=== PATIENT | male | born 1950 | race Caucasian/White ===

== ENCOUNTER → 2020-12-19 13:10 | Outpatient (BNVA) | payer MEDICARE, SELFPAY | PROVIDERS: PCP Internal Medicine; Visit Provider Urology | DX: Z13.89 Encounter for screening for other disorder (principal) | CPT/HCPCS: Q3014 ==

== ENCOUNTER → 2021-12-22 13:07 | Outpatient (BNVA) | payer MEDICARE, BC, SELFPAY | PROVIDERS: PCP Internal Medicine; Visit Provider Urology | DX: N40.1 Benign prostatic hyperplasia with lower urinary tract symptoms (principal); N13.8 Other obstructive and reflux uropathy; R39.12 Poor urinary stream; Z79.899 Other long term (current) drug therapy | CPT/HCPCS: 51798; 99212 ==

== ENCOUNTER → 2022-12-22 13:12 | Outpatient (BNVA) | payer MEDICARE, BC, SELFPAY | PROVIDERS: PCP Internal Medicine; Visit Provider Urology | DX: N40.1 Benign prostatic hyperplasia with lower urinary tract symptoms (principal); N13.8 Other obstructive and reflux uropathy; R35.1 Nocturia; R39.12 Poor urinary stream; R97.20 Elevated prostate specific antigen [PSA] | CPT/HCPCS: 51798; 99212 ==

== ENCOUNTER 2023-12-08 12:36 | Outpatient (REF) | payer MEDICARE, BC, SELFPAY ==
[2023-12-08 13:55] LABS: Prostate Specific Antigen 1.01 ng/mL (<0.05-4.0)
== END 2023-12-08 12:37 | disposition home or self-care (01) ==
LOC: HO.10HDL 12:36
PROVIDERS: Visit Provider Urology
DX: N40.1 Benign prostatic hyperplasia with lower urinary tract symptoms (principal); N13.8 Other obstructive and reflux uropathy; Z12.5 Encounter for screening for malignant neoplasm of prostate
CPT/HCPCS: 36415; 84153

== ENCOUNTER 2023-12-21 13:23 | Outpatient (AMB) | payer MEDICARE, BC, SELFPAY ==
--- NOTE | 2023-12-21 13:51 | A.OFFVIS_ITS ---
Intake Intake Visit Reasons: 1Y PSA(set)confirmed Intake Note: Patient presents today for a yearly follow-up and PSA labs. Meds- Finasteride Allergies to Antibiotic- No Known Allergies Blood Thinner- None Post Void Residual: 42ml Client Services Manager Required: No Accompanied by: Self / Same As Patient Allergies No Known Allergies Allergy (Verified 12/21/23 13:53) HPI HPI Comments History of Present Illness Details Gaston VALERA is a very pleasant male. He is a patient of Dr Logan. He is seen for the following urologic conditions - lower urinary tract symptoms PVR 42 cc Continue finasteride Tuesday, Tuesday, Tuesday Twelve month follow-up Lower Urinary Tract Symptoms: Current treatment includes medication, finasteride Prostate Symptom Score 8/18 , Mild (0-8), Bother 2 12/06 does have some nocturia. But eats dinner late and drinks with dinner PSA 12/07 0.6 Results from testing include cystoscopy Enlarged lateral lobes renal/bladder us Yes date 12/05/2018 PVR 50 prostate size 25 Prior Prostate Score unknown. Prostate volume 30-50gm. Testing at next visit will include bladder scan, Prostate Symptom Score. [facility] Medical History Nocturia Chronic prostatitis Weak urinary stream Surgical History History of eye surgery History of knee replacement Review of Systems Const Denies chills and Denies fever(s) Card Reports no additional complaints and Denies syncope Resp Denies cough GI Denies abdominal pain and Denies heartburn Reports as per HPI and Denies change in libido Neuro Denies syncope Psych Denies change in libido Endo Denies change in libido Physical Exam Const General: cooperative, healthy appearing, comfortable and no acute distress Orientation/consciousness: patient oriented x3 HEENT Face and sinus: Yes normal facial exam Mouth: moist mucous membranes Neck Neck: Yes normal visual inspection, Yes full ROM and Yes trachea midline Chest Chest palpation & inspection: normal inspection of the chest Resp Effort & Inspection: normal respiratory effort, able to speak in complete sentences and no respiratory distress GI Inspection: Yes normal to inspection Back/Spine/Pelvis Cervical Spine: normal cervical lordosis Thoracic/Lumbar Spine: thoracic and lumbar spine normal to inspection Skin General skin exam: no rashes or lesions noted Neuro General: patient oriented x3, gait normal, tone normal and moves all extremities Extrem General: Yes normal to inspection and Yes capillary refill normal Office Procedures Post Void Residual Post Residual Void Post Void Residual (PVR): 42 15308-Iule Void Residual by ultrasound Assessment & Plan Assessment & Plan (1) Nocturia: Code(s): R35.1 - Nocturia (2) Weak urinary stream: Code(s): R39.12 - Poor urinary stream (3) BPH w urinary obs/LUTS: Code(s): N40.1 - Benign prostatic hyperplasia with lower urinary tract symptoms; N13.8 - Other obstructive and reflux uropathy Plan Continue yearly evaluation Orders: Orders AMB Post Void Residual by ultrasound 12/21/23 R33.9 - Retention of urine, unspecified Patient Instructions: Imaging studies, laboratory and physical exam results were discussed and reviewed in detail. No major barriers to patient understanding were identified. An opportunity to ask questions regarding the treatment plan was provided. All questions were answered. The patient expressed understanding and agreement with the above treatment plan. The patient is aware they should contact our office by phone for worsening of their current condition or the appearance of new urologic symptoms. Compliance is encouraged with any medications and followup testing that is ordered. It is a privilege to participate in the urologic care of your patient. If you have any questions or concerns regarding treatment for the above conditions, or other urologic issues, please do not hesitate to contact me. The office telephone contact is [phone]. This note is constructed using voice recognition software. While every effort has been made to ensure accuracy milieu coordinator errors may have been included. Yours sincerely, Dr Duglas Segovia MD, [facility] - Urology Providers of Expert, Compassionate Care for the Genitourinary System Coding Level of Care Code Tele Est Pt Level 4 (87110) Diagnoses Nocturia R35.1 Weak urinary stream R39.12 BPH w urinary obs/LUTS N40.1; N13.8 CPT Codes Post Residual Void - PVR CPT Code: 12652-Aais Void Residual by ultrasound ([id number])
== END 2023-12-21 14:28 | disposition home or self-care (01) ==
PROVIDERS: Visit Provider Urology
DX: N40.1 Benign prostatic hyperplasia with lower urinary tract symptoms (principal); R35.1 Nocturia; R39.12 Poor urinary stream; N13.8 Other obstructive and reflux uropathy
CPT/HCPCS: 99213

== ENCOUNTER → 2023-12-21 13:23 | Outpatient (BNVA) | payer MEDICARE, BC, SELFPAY | PROVIDERS: Visit Provider Urology | DX: N40.1 Benign prostatic hyperplasia with lower urinary tract symptoms (principal); N13.8 Other obstructive and reflux uropathy; R35.1 Nocturia; R39.12 Poor urinary stream | CPT/HCPCS: 51798; 99212 ==

== ENCOUNTER 2025-01-04 13:03 | Outpatient (AMB) | payer MEDICARE, BC, SELFPAY ==
--- NOTE | 2025-01-04 13:04 | MHC.OFFVIS ---
Intake Visit Reasons: 1y follow up Intake Note: Pt presents to the office today for a 1 year follow up/PVR. PVR:99mL Allergies No Known Allergies Allergy (Verified 01/04/25 13:04) HPI Comments Details: Gaston VALERA is a very pleasant male. He is a patient of Dr Logan. He is seen for the following urologic conditions - lower urinary tract symptoms Yearly review PVR 100 cc Continue finasteride Tuesday, Tuesday, Tuesday Lower Urinary Tract Symptoms: Current treatment includes medication, finasteride Prostate Symptom Score 8/18 , Mild (0-8), Bother 2 12/06 does have some nocturia. But eats dinner late and drinks with dinner PSA 12/07 0.6 Results from testing include cystoscopy Enlarged lateral lobes renal/bladder us Yes date 12/05/2018 PVR 50 prostate size 25 Prior Prostate Score unknown. Prostate volume 30-50gm. Testing at next visit will include bladder scan, Prostate Symptom Score. [facility] Medical History Nocturia Chronic prostatitis Weak urinary stream Surgical History History of eye surgery History of knee replacement Review of Systems Const Denies chills and Denies fever(s) Card Reports no additional complaints and Denies syncope Resp Denies cough GI Denies abdominal pain and Denies heartburn Reports as per HPI and Denies change in libido Neuro Denies syncope Psych Denies change in libido Endo Denies change in libido Physical Exam Const General: cooperative, healthy appearing, comfortable and no acute distress Orientation/consciousness: patient oriented x3 HEENT Face and sinus: Yes normal facial exam Mouth: moist mucous membranes Neck Neck: Yes normal visual inspection, Yes full ROM and Yes trachea midline Chest Chest palpation & inspection: normal inspection of the chest Resp Effort & Inspection: normal respiratory effort, able to speak in complete sentences and no respiratory distress GI Inspection: Yes normal to inspection Back/Spine/Pelvis Cervical Spine: normal cervical lordosis Thoracic/Lumbar Spine: thoracic and lumbar spine normal to inspection Skin General skin exam: no rashes or lesions noted Neuro General: patient oriented x3, gait normal, tone normal and moves all extremities Extrem General: Yes normal to inspection and Yes capillary refill normal Office Procedures Post Void Residual Post Residual Void Post Void Residual (PVR): 99 [id number] Void Residual by ultrasound Assessment & Plan Assessment & Plan (1) Weak urinary stream: Code(s): R39.12 - Poor urinary stream Category: Medical (2) Nocturia: Code(s): R35.1 - Nocturia Category: Medical (3) BPH w urinary obs/LUTS: Code(s): N40.1 - Benign prostatic hyperplasia with lower urinary tract symptoms; N13.8 - Other obstructive and reflux uropathy Category: Medical Plan 12 month follow-up Orders: Orders AMB Post Void Residual by ultrasound Today N13.8 - Other obstructive and reflux uropathy, N40.1 - Benign prostatic hyperplasia with lower urinary tract symptoms Patient Instructions: This note is constructed using voice recognition software. While every effort has been made to ensure accuracy manager icu errors may have been included. Imaging studies, laboratory and physical exam results were discussed and reviewed in detail. No major barriers to patient understanding were identified. An opportunity to ask questions regarding the treatment plan was provided. All questions were answered. The patient expressed understanding and agreement with the above treatment plan. The patient is aware they should contact our office by phone for worsening of their current condition or the appearance of new urologic symptoms. Compliance is encouraged with any medications and followup testing that is ordered. It is a privilege to participate in the urologic care of your patient. If you have any questions or concerns regarding treatment for the above conditions, or other urologic issues, please do not hesitate to contact me. The office telephone contact is [phone]. Sincerely, Dr Duglas Segovia MD, [facility] - Urology Compassionate Specialist Care for the Genitourinary System Coding Level of Care Code Est Pt Level 4 (78967) Complex EM visit Add On G2211 Diagnoses Weak urinary stream R39.12 Nocturia R35.1 BPH w urinary obs/LUTS N40.1; N13.8 CPT Codes Post Residual Void - PVR CPT Code: 53940-Abmw Void Residual by ultrasound ([id number])
== END 2025-01-04 13:24 | disposition home or self-care (01) ==
LOC: HO.HUSH 13:03
PROVIDERS: PCP Internal Medicine; Visit Provider Urology
DX: N40.1 Benign prostatic hyperplasia with lower urinary tract symptoms (principal); R39.12 Poor urinary stream; R35.1 Nocturia; N13.8 Other obstructive and reflux uropathy
CPT/HCPCS: 99214; G2211

== ENCOUNTER → 2025-01-04 13:03 | Outpatient (BNVA) | payer MEDICARE, BC, SELFPAY | PROVIDERS: PCP Internal Medicine; Visit Provider Urology | DX: N40.1 Benign prostatic hyperplasia with lower urinary tract symptoms (principal); N13.8 Other obstructive and reflux uropathy; R39.12 Poor urinary stream; R35.1 Nocturia | CPT/HCPCS: 51798; 99212 ==